=== PATIENT | male | born 2000 | race Caucasian/White ===

== ENCOUNTER 2021-04-13 19:15 | Emergency (ER) | payer SELFPAY | END 2021-04-13 21:01 | disposition home or self-care (01) | LOC: ER1 19:15 | DX: S90.31XA Contusion of right foot, initial encounter (principal); F17.200 Nicotine dependence, unspecified, uncomplicated; X58.XXXA Exposure to other specified factors, initial encounter; Y93.89 Activity, other specified; Y92.9 Unspecified place or not applicable; Y99.0 Civilian activity done for income or pay | CPT/HCPCS: 73630; 99283 ==

== ENCOUNTER → 2021-04-16 | Outpatient (CLI) | payer OTHER | LOC: KOH-I 15:10 | DX: M79.671 Pain in right foot (principal) | CPT/HCPCS: 73630 ==